=== PATIENT | female | born 1950 | race Caucasian/White ===

== ENCOUNTER 2016-09-20 21:01 | Emergency (ER) | payer OTHER, MEDICARE ==
[~2016-09-20] VITALS: Ht 162.6 cm; Wt 75.5 kg
[~2016-09-20 21:01] MED LIST: AMLO-110 PO; ATOR-22 PO; CALCTAB7 PO; LEVO-217 PO; LISI40TA PO; LRT5 PO; PRD/1 PO
[2016-09-20 21:04] VITALS: TEMP 36.4; Ht 162.6 cm; Wt 75.5 kg
--- NOTE | 2016-09-20 22:13 | EMERGENCY ROOM VISIT NOTE ---
ED Visit Note First contact with patient: 21:47 I have personally seen and evaluated the patient with the physician assistant community manager. I agree with the diagnostic/management decisions and have personally been involved in these decisions and agree with the diagnosis.
[2016-09-20] MEDS ORDERED: HYDR-5688 PO (22:33)
[2016-09-20] MEDS ORDERED: LEVO50TA6 PO (22:33)
[2016-09-20] MEDS ORDERED: ATEN-173 PO (22:33)
[2016-09-20 22:40] VITALS: BP 161/86; PULSE 89; O2SAT 97
--- NOTE | 2016-09-20 22:42 | EMERGENCY ROOM VISIT NOTE ---
History First contact with patient: 21:47 Chief Complaint: EYE ASSESSMENT Stated Complaint: DARKNESS ON LEFT EYE - COULDN'T SEE History of Present Illness The patient is a 66 year old female who presents to the Emergency Room with complaints of a brief visual disturbance of the left eye. The patient reports that she was sitting on a couch tonight when she developed a dark curtainlike obstruction of the upper field of her left eye. She did not notice any visual disturbance of the right eye. The patient also had a mild frontal headache as well. Within 10 minutes, she reports that the visual disturbance and headache resolved. The patient denies any prior history of visual problems. She does have a history of polymyalgia rheumatica. She was seen at the [facility] approximate 2 months ago, referred by her family doctor. They wanted to do a thorough eye exam that was scheduled for another time. The patient reports that she did not go back because of other scheduling issues. The patient denies any recent upper respiratory infections. She denies any history of CVA or TIA. She did not notice any difficulty with speech, and the did not notice any facial droop or other unusual symptoms. The patient currently denies any headache or visual disturbance. Review of Systems 10 system review was performed and was negative except for pertinent positives and negatives as indicated in history of present illness Past Medical/Surgical History Surgical Problems: (1) No significant past surgical history Family History FH: cancer FH: hypertension Social History Smoking Status: Never Smoker Alcohol Use: none Drug Use: none Marital Status: Occupation Status: employed Current/Historical Medications Scheduled Amlodipine (Norvasc), 5 MG PO DAILY Atorvastatin (Lipitor), 20 MG PO HS Calcium Carbonate-Vitamin D W/ (Caltrate 600 Plus), 1 TAB PO BID Hydrocodone/Acetaminophen 5/500 Tab (Lortab 5/500 Tab), 1 TABLET PO HS Levothyroxine (Levothroid), 0.05 MG PO DAILY Lisinopril (Prinivil), 40 MG PO DAILY Prednisone (Prednisone), 4 MG PO DAILY Allergies Coded Allergies: Ibuprofen (Unverified Allergy, Severe, HEADACHE, 04/28/16) Cephalexin (Verified Allergy, Unknown, RAPID HEART RATE, 04/28/16) Physical Exam Vital Signs Date Time Temp Pulse Resp B/P Pulse Ox O2 Delivery O2 Flow Rate FiO2 09/20/16 21:04 36.4 108 18 180/74 97 Room Air Right Eye Acuity: 20/40 without correction Left Eye Acuity: 20/40 without correction Physical Exam CONSTITUTIONAL: Healthy and well nourished. Alert and oriented X 3 with positive affect. He does not appear in any acute distress. HEENT: Normocephalic, atraumatic. Pupils equal, round and reactive. Examination shows no conjunctival injection of the eyes. EOMs intact without discomfort. No tenderness to palpation of the temporal arteries. The patient has full visual field in both eyes. No facial droop. NECK: Full active range of motion without discomfort. No JVD or carotid bruits. RESPIRATORY: Clear to auscultation bilaterally with no wheezing, crackles, rhonchi or stridor. CARDIOVASCULAR: Regular rate and rhythm with no murmurs, rubs or gallops. MUSCULOSKELETAL: Full range of motion of all joints without discomfort. Equal hand patrol mother bilaterally. INTEGUMENTARY: No rash or other significant dermatologic conditions noted. NEUROLOGIC: No focal neurologic deficits noted. Cranial nerves II through XII grossly intact. Facial sensations are intact. Medical Decision & Procedures Laboratory Results Test 09/20/16 22:16 ED Course Patient history and physical exam were performed. Nurse's notes were reviewed. Vital signs were reviewed, showing a blood pressure 180/74. The patient's clinical exam is normal. She has no visual field defects, and visual acuity is 20/40 bilaterally. The case was also further discussed with Dr. Louis, ED attending physician, who suggested consultation with ophthalmology. The case was further discussed with Dr. Oseguera who requested a CRP and sedimentation rate lab draw. He does not feel that any further imaging studies are warranted at this time, and he will see the patient in the office tomorrow. The patient was instructed to call his office tomorrow morning to set up an appointment for tomorrow. The patient was also seen and examined by Dr. Louis who suggested taking a baby aspirin daily until cleared by Dr. Oseguera. The patient was instructed to limit her activities as well as until cleared. She may return to the emergency department for any recurring visual disturbance that does not resolve, or if it worsens, develops a fever, or develops other concerning neurologic findings. The patient was happy with plan of care, and denied any discomfort at the time of discharge. Medical Decision Patient presents with complaint of a transient left visual disturbance. She is currently asymptomatic. Differentials considered included atypical migraine, retinal detachment, vitreous detachment, thromboembolic event, temporal arteritis and CVA/TIA. At this point, ophthalmology feels that the patient is stable and can be treated on an outpatient basis. Impression Primary Impression: Visual disturbance of one eye Additional Impression: Polymyalgia rheumatica Departure Information Dispostion Home / Self-Care Referrals Marlon Mackey M.D. Forms HOME CARE DOCUMENTATION FORM, IMPORTANT VISIT INFORMATION Patient Instructions My [facility] Additional Instructions Follow-up tomorrow with Dr. Bonilla. Call first thing in the morning and tell them that you were seen in the emergency department, and that Dr. Bonilla wants to see you tomorrow. Return to the emergency department for any progressive visual disturbance that does not improve. Problem Qualifiers
== END 2016-09-20 22:41 | disposition home or self-care (01) ==
LOC: C.EDB 21:02 → C.EDD 22:41
DX: H53.9 Unspecified visual disturbance (principal); M35.3 Polymyalgia rheumatica; Z82.49 Family history of ischemic heart disease and other diseases of the circulatory system

== ENCOUNTER → 2016-09-28 | Outpatient (CLI) | payer OTHER, MEDICARE ==
[~2016-09-28] MED LIST changes: -AMLO-110 PO; +ATEN-173 PO; +HYDR-5688 PO; -LEVO-217 PO; +LEVO50TA6 PO; -LRT5 PO
--- NOTE | 2016-09-28 07:58 | DIAGNOSTIC IMAGING REPORT ---
MRA OF THE INTRACRANIAL CIRCULATION WITHOUT CONTRAST CLINICAL HISTORY: Acute left sided visual loss. COMPARISON STUDY: Head CT January 25, 2013 TECHNIQUE: Utilizing a 1.5 Janel magnet and 3-D [id number] technique, unenhanced MRA of the intracranial circulation was obtained. FINDINGS: The bilateral M1, M2, A1 and A2 segments are patent. No abrupt vessel cut off is identified within the intracranial circulation. There is mild intracranial vascular irregularity. No aneurysm is identified. Posterior circulation is intact. IMPRESSION: Unremarkable MRA of the intracranial circulation. Electronically signed by: Giuseppe Cyr M.D. 09/28/2016 7:57 AM Dictated Date/Time: 09/28/2016 7:44 AM
== END | disposition home or self-care (01) ==
LOC: C.MRI 06:41
PROVIDERS: ATTEND Family Medicine
DX: I67.89 Other cerebrovascular disease (principal); H53.139 Sudden visual loss, unspecified eye